=== PATIENT | female | born 1985 | race African-American/Black ===

== ENCOUNTER 2022-10-06 14:04 | Emergency (ER) | payer OTHER, SELFPAY ==
[2022-10-06 14:15] VITALS: BP 110/59; PULSE 89; RESP 16; TEMP 36.6; O2SAT 99
--- NOTE | 2022-10-06 14:50 | ED.BACK ---
HPI - Back Pain/Injury General Chief Complaint: Back Pain/Injury Stated Complaint: lower back pain Time Seen by Provider: 10/06/22 14:53 Source: patient and RN notes reviewed Mode of arrival: ambulatory Limitations: no limitations History of Present Illness HPI Narrative: 37-year-old female presents with concern for left low back pain that radiates down the left leg that started this morning. Reports it has worsened over the last several hours. Reports it is very painful to change positions from lying to sitting to standing, she reports it hurts to sit down. She reports she has had history of having this before. She denies loss of bowel or bladde function, perianal anesthesia, fever, injury or trauma. MD elicited complaint: back pain Related Data Allergies Allergy/AdvReac Type Severity Reaction Status Date / Time Sulfa (Sulfonamide Allergy Mild Hives Verified 10/06/22 14:42 Antibiotics) cephalexin Allergy Itching Verified 10/06/22 14:43 Review of Systems Review of Systems: CONSTITUTIONAL: Denies malaise, chills, sweats, or fever. CARDIOVASCULAR: Denies chest pain, palpitations, or edema. RESPIRATORY: Denies cough or dyspnea. GASTROINTESTINAL: Denies abdominal pain, nausea, vomiting, diarrhea, loss of bowel function GENITOURINARY: Denies dysuria, hematuria, frequency, loss of bladder function. SKIN: Denies rash or itching. MUSCULOSKELETAL: Reports left low back pain that radiates down the left leg NEUROLOGIC: Denies numbness, weakness, or headache. All systems reviewed & are unremarkable except as noted in HPI and below PMFSH Comments At time of signature, agree with nursing past medical, surgical, social and family history. There is no relevant family history pertinent to the presenting complaint Exam Narrative: GENERAL: Well-appearing, well-nourished, and in no acute distress. HEAD: Normocephalic, atraumatic. EYES: PERRLA and EOMI. NECK: Supple. No lymphadenopathy. CHEST: Clear to auscultation. No respiratory distress. HEART: Regular rate and rhythm. Distal pulses palpable and equal, cap refill <3 seconds ABDOMEN: Soft, nontender, nondistended, normal active bowel sounds, no palpable or pulsatile masses. No CVA tenderness MUSCULOSKELETAL: Normal range of motion and strength in all extremities; 5/5 strength with hip flexion and extension, dorsiflexion and extension, knee flexion and extension, plantar flexion and extension. Normal sensation in dermatomal distributions with sensitivity to light touch and pain. No midline back tenderness to palpation. No paraspinal tenderness. Transfers from lying to standing with pain. SKIN: Warm, dry, no rash. No ecchymosis, erythema, open wounds to back. NEURO: No focal deficits. Alert and oriented x3. Normal gait. PSYCH: Normal mood and affect Course Course Emergency Course: Patient is aware of diagnosis, understands and agrees to treatment plan. Anticipatory guidance given. Patient agrees to follow-up as directed and is aware of reasons to seek care at the emergency department. Portions of this record may have been created with voice recognition software Level of Care: Express Care Visit Vital Signs Vital signs: Vital Signs Temperature 97.8 F 10/06/22 14:15 Pulse Rate 89 10/06/22 14:15 Respiratory Rate 16 10/06/22 14:15 Blood Pressure 110/59 L 10/06/22 14:15 Pulse Oximetry 99 10/06/22 14:15 Oxygen Delivery Room Air 10/06/22 14:15 Temperature 97.8 F 10/06/22 14:15 Pulse Rate 89 10/06/22 14:15 Respiratory Rate 16 10/06/22 14:15 Blood Pressure 110/59 L 10/06/22 14:15 Pulse Oximetry 99 10/06/22 14:15 Oxygen Delivery Room Air 10/06/22 14:15 Reviewed. MDM - Back Pain/Injury MDM Narrative Medical decision making narrative: No risk factors or findings concerning for epidural abscess, diskitis, vertebral osteomyelitis, cord compression, cauda equina, vertebral fracture or bone malignancy, AAA, or pyelonephritis. Patient instructed to
== END 2022-10-06 15:10 | disposition home or self-care (01) ==
PROVIDERS: Emergency Provider Nurse Practitioner
DX: M54.50 Low back pain, unspecified (principal)
CPT/HCPCS: 99213; G0463